=== PATIENT | male | born 1965 | race Caucasian/White ===

== ENCOUNTER 2023-12-17 14:38 | Emergency (ER) | payer BC ==
[~2023-12-17] VITALS: Ht 175.3 cm; Wt 66.7 kg
[2023-12-17 15:02] VITALS: BP 146/78; TEMP 98.3; O2SAT 99
== END 2023-12-17 16:58 | disposition home or self-care (01) ==
LOC: ER 14:38
DX: R05.9 Cough, unspecified (principal)
CPT/HCPCS: 71045-TC